=== PATIENT | male | born 1985 | race Caucasian/White ===

== ENCOUNTER 2022-01-07 21:35 | Emergency (ER) | payer OTHER, MEDICAID, SELFPAY ==
[2022-01-07 21:49] VITALS: BP 128/78; PULSE 83; RESP 19; TEMP 36.9; O2SAT 100; BMI 25.0
--- NOTE | 2022-01-07 22:04 | ED_ITS ---
HPI - Skin/Abscess/Foreign Bdy General Chief complaint: Skin/Abscess/Foreign Body Stated complaint: states pain from infection lt arm Time Seen by Provider: 01/07/22 22:02 Source: patient Mode of arrival: Ambulatory Limitations: no limitations History of Present Illness HPI narrative: Patient here for pain and swelling in the left proximal forearm distal to the olecranon. Started 2 weeks ago. Denies any IV drug use. Has history of MRSA. He states it started with a here follicle being irritated. No joint pain. No skin breakdown. Patient states sulfa antibiotic works the best. Related Data Previous Rx's Medication Instructions Recorded cephalexin 500 mg capsule 500 mg PO QID #28 caps 01/07/22 ibuprofen 800 mg tablet 800 mg PO Q8H PRN pain #20 tabs 01/07/22 sulfamethoxazole 800 1 tab PO BID #14 tabs 01/07/22 mg-trimethoprim 160 mg tablet (Bactrim DS) Allergies Allergy/AdvReac Type Severity Reaction Status Date / Time amoxicillin Allergy Hives Verified 01/07/22 22:16 Review of Systems Review of Systems Narrative: GENERAL: Denies chills, fatigue, malaise, fever, sweats. HEENT: Denies sinus pain, ear pain, sore throat RESPIRATORY: Denies dyspnea, cough CARDIOVASCULAR: Denies chest pain, palpitations GASTROINTESTINAL: Denies nausea, vomiting, abdominal pain : Denies dysuria, frequency, hematuria MUSCULOSKELETAL: denies muscle or bony pain SKIN: Denies rash, positive for erythema/induration NEUROLOGIC: Denies weakness, numbness ROS Unobtainable: All systems reviewed & are unremarkable except as noted in HPI and below Patient History Social History Smoking Status: Current every day smoker Smoking Status: Current every day smoker alcohol intake frequency: 0-2 drinks per day Substance Use Type: methamphetamine Exam Narrative Exam Narrative: GENERAL: in no distress, not toxic not dyspneic HEAD: Normocephalic. EXTREMITIES: No gross deformities. Examination left upper extremity. There is erythema induration and mild tenderness to the proximal forearm near the olecranon. It is distal to the olecranon. No palpable fluctuance. No red streaking. Able to extend and flex at the elbow. [employer] and pulse with light touch intact to fingers and thumb. Skin otherwise intact. NEURO: AOx4. SKIN: Warm and dry PSYCH: Not anxious, is cooperative Initial Vital Signs Initial Vital Signs: Vital Signs Temperature 98.4 F 01/07/22 21:49 Pulse Rate 83 01/07/22 21:49 Respiratory Rate 19 01/07/22 21:49 Blood Pressure 128/78 01/07/22 21:49 Pulse Oximetry 100 01/07/22 21:49 Oxygen Delivery Method 01/07/22 21:49 Course Course Course Narrative: No new issues during course of stay Orders Ordered: ED Orders 01/07/22 22:06 US extremity nonvasc upper lt Stat Discontinued Medications Cephalexin HCl (Cephalexin 250 Mg Capsule) 500 mg PO NOW ONE Stop: 01/07/22 22:08 Last Admin: 01/07/22 22:21 Dose: 500 mg Documented By: ROBERTO Ibuprofen (Ibuprofen 400 Mg Tablet) 800 mg PO NOW ONE Stop: 01/07/22 22:14 Last Admin: 01/07/22 22:22 Dose: 800 mg Documented By: ROBERTO Trimethoprim/Sulfamethoxazole (Trimeth/Sulfa 160/800 (Ds) Tablet) 1 tab PO NOW ONE Stop: 01/07/22 22:08 Last Admin: 01/07/22 22:17 Dose: 1 tab Documented By: ROBERTO Reevaluation(s) Reevaluation #1: Reviewed results with patient. Pain control time of discharge. Not toxic at discharge. Return precautions reviewed with patient Time: 00:28 Vital Signs Vital signs: Vital Signs - 8 hr 01/07/22 21:49 01/08/22 00:34 Temperature 98.4 F Pulse Rate 83 80 Respiratory Rate 19 18 Blood Pressure 128/78 124/71 Pulse Oximetry 100 100 Oxygen Delivery Method Room Air Room Air MDM - Skin/Abscess/Foreign Bdy Differential Diagnosis Differential diagnosis: Likely abscess of skin or subcutaneous tissue, cellulitis and other (Abscess/cellulitis) Imaging Data Ultrasound extremity: Radiologist's Impression: [address] [address] Ultrasound Report Signed Patient: Adalberto Sen MR#: [id number] : 1985 Acct:[id number] Age/Sex: 36 / M Date of Service: 01/07/22 Loc: ED Accession Number: [id number] ?? Procedure: US extremity nonvasc upper lt Ordering Provider: Luis F Alcantar MD PROCEDURE:? US EXTREMITY NONVASC UPPER LT ? INDICATIONS:? LEFT ARM PAIN; POSSIBLE ABSCESS ? TECHNIQUE:? Real-time scanning was performed of the left lower, with image documentation. ? ? COMPARISON:? None. ? FINDINGS:? ? Ultrasound evaluation of the left forearm in the area of clinical concern demonstrates no discrete fluid collection to suggest an abscess.? No suspicious mass lesions. ? IMPRESSION:? ? 1. No discrete loculated fluid collection to suggest an abscess demonstrated in the area of clinical concern. ? ? Dictated by: Adalberto Grewal M.D. on 01/08/2022 at 0:19 ? ? Approved by: Adalberto Grewal M.D. on 01/08/2022 at 0:21 ? MDM Narrative Medical decision making narrative: Appropriate for discharge home. Exam and imaging are reassuring. No blood work indicated this time. Nontoxic. No fever. No incision drainage at this time. No fluid collection. Return precautions reviewed with patient. Discharge Plan Departure Patient Disposition: Home Clinical Impression: Cellulitis Instructions: DI for Cellulitis -- Adult Activity Restrictions/Additional Instructions: See family doctor within a week for re-evaluation. Call provided primary care referral phone number to establish family doctor. Call [phone] return if worse if any questions or concerns. At this time no incision/drainage of the skin indicated. Please be sure to complete the antibiotics. Prescriptions: New ibuprofen 800 mg tablet 800 mg PO Q8H PRN (Reason: pain) Qty: 20 0RF cephalexin 500 mg capsule 500 mg PO QID Qty: 28 0RF sulfamethoxazole-trimethoprim [Bactrim DS] 800-160 mg tablet 1 tab PO BID Qty: 14 0RF Visit Report Forms: Patient Portal/API
--- NOTE | 2022-01-07 22:06 | DI.US.S_ITS ---
PROCEDURE: US EXTREMITY NONVASC UPPER LT INDICATIONS: LEFT ARM PAIN; POSSIBLE ABSCESS TECHNIQUE: Real-time scanning was performed of the left lower, with image documentation. COMPARISON: None. FINDINGS: Ultrasound evaluation of the left forearm in the area of clinical concern demonstrates no discrete fluid collection to suggest an abscess. No suspicious mass lesions. IMPRESSION: 1. No discrete loculated fluid collection to suggest an abscess demonstrated in the area of clinical concern. Dictated by: Adalberto Grewal M.D. on 01/08/2022 at 0:19 Approved by: Adalberto Grewal M.D. on 01/08/2022 at 0:21
[2022-01-07] MEDS: TRIMETH/SULFA 160/800 (DS) TABLET 1 TAB PO (22:17)
[2022-01-07] MEDS: cephALEXin 250 MG CAPSULE 500 MG PO (22:21)
[2022-01-07] MEDS: IBUPROFEN 400 MG TABLET 800 MG PO (22:22)
[2022-01-08 00:34] VITALS: BP 124/71; PULSE 80; RESP 18; O2SAT 100
== END 2022-01-08 00:36 | disposition home or self-care (01) ==
PROVIDERS: Emergency Provider Emergency Medicine
DX: L03.114 Cellulitis of left upper limb (principal)
CPT/HCPCS: 76882; 99283

== ENCOUNTER 2022-01-08 08:21 | Emergency (ER) | payer OTHER, MEDICAID, SELFPAY ==
[2022-01-08 08:44] VITALS: BP 125/64; PULSE 80; RESP 18; TEMP 36.9; O2SAT 99
--- NOTE | 2022-01-08 09:05 | ED_ITS ---
HPI - Skin/Abscess/Foreign Bdy General Chief complaint: Skin/Abscess/Foreign Body Stated complaint: States MRSA. Here last night Time Seen by Provider: 01/08/22 09:05 Source: patient Mode of arrival: Ambulatory Limitations: no limitations History of Present Illness HPI narrative: Patient is a 36-year-old male homeless presenting for the 2nd time in 10 hours for right arm cellulitis. He denies any on the DA. He says he has had swelling and redness for last 2 weeks. He was given prescriptions of both cephalexin ibuprofen and Bactrim. He is yet to have filled any of them. There isn't ultrasound done which did not show any fluid collection. He is requesting a sandwich Related Data Previous Rx's Medication Instructions Recorded cephalexin 500 mg capsule 500 mg PO QID #28 caps 01/07/22 ibuprofen 800 mg tablet 800 mg PO Q8H PRN pain #20 tabs 01/07/22 sulfamethoxazole 800 1 tab PO BID #14 tabs 01/07/22 mg-trimethoprim 160 mg tablet (Bactrim DS) Allergies Allergy/AdvReac Type Severity Reaction Status Date / Time amoxicillin Allergy Hives Verified 01/07/22 22:16 Review of Systems Review of Systems Narrative: GENERAL: Denies chills,fever HEENT: Denies throat pain RESPIRATORY: Denies dyspnea, cough, wheezing CARDIOVASCULAR: Denies chest pain, palpitations GASTROINTESTINAL: Denies nausea, vomiting MUSCULOSKELETAL: Denies extremity pain, injury SKIN: See HPI NEUROLOGIC: Denies weakness, dizziness, headache, numbness 8 point review of systems is negative except for those stated above and HPI Patient History Social History Smoking Status: Current every day smoker Smoking Status: Current every day smoker tobacco type: cigarettes alcohol intake frequency: 0-2 drinks per day Substance Use Type: marijuana, crack/cocaine, heroin and methamphetamine Exam Initial Vital Signs Initial Vital Signs: Vital Signs Temperature 98.4 F 01/08/22 08:44 Pulse Rate 80 01/08/22 08:44 Respiratory Rate 18 01/08/22 08:44 Blood Pressure 125/64 01/08/22 08:44 Pulse Oximetry 99 01/08/22 08:44 Oxygen Delivery Method 01/08/22 08:44 GENERAL: Well-appearing, well-nourished and in no acute distress. CARDIOVASCULAR: peripheral pulses in tact, cap refill <2 sec RESPIRATORY: No respiratory distress, speaks in full sentences without difficulty EXTREMITIES: Normal range of motion, no clubbing or edema. Neurovascularly intact NEUROLOGICAL: Cranial nerves II through XII grossly intact. Normal gait and sp eech. SKIN: Right arm erythema area of mild swelling no obvious fluctuation. No active drainage. Tender to touch Course Orders Ordered: Discontinued Medications Ibuprofen (Ibuprofen 400 Mg Tablet) 800 mg PO NOW ONE Stop: 01/08/22 09:17 Last Admin: 01/08/22 09:30 Dose: 800 mg Documented By: CTS Vital Signs Vital signs: Vital Signs - 8 hr 01/08/22 08:44 Temperature 98.4 F Pulse Rate 80 Respiratory Rate 18 Blood Pressure 125/64 Pulse Oximetry 99 Oxygen Delivery Method Room Air MDM - Skin/Abscess/Foreign Bdy MDM Narrative Medical decision making narrative: I have explained to patient that I cannot fill his prescriptions for him. He is given a good Rx card. He is encouraged to try and do warm compresses. It may need to be opened but certainly not now. More likely a cellulitis. He does not appear septic. Discharge Plan Departure Patient Disposition: Home Clinical Impression: Cellulitis Instructions: DI for Cellulitis -- Adult Activity Restrictions/Additional Instructions: *You have been diagnosed with cellulitis *What to do: You have infection on her skin. At this time it will not help to open it. Please continue to monitor it may need to be opened later *Continue to take medications as directed Take your antibiotic as prescribed you have been given a discount card *Follow up with your primary care provider in 2-3 days or call [phone] *Return to ER if you should have increasing redness fever pain or any new, worsening or concerning symptoms Prescriptions: No Action ibuprofen 800 mg tablet 800 mg PO Q8H PRN (Reason: pain) Qty: 20 0RF cephalexin 500 mg capsule 500 mg PO QID Qty: 28 0RF sulfamethoxazole-trimethoprim [Bactrim DS] 800-160 mg tablet 1 tab PO BID Qty: 14 0RF Visit Report Forms: Patient Portal/API
[2022-01-08] MEDS: IBUPROFEN 400 MG TABLET 800 MG PO (09:30)
--- NOTE | 2022-01-08 09:30 | PC.NURSE ---
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
== END 2022-01-08 09:42 | disposition home or self-care (01) ==
PROVIDERS: Emergency Provider Emergency Medicine
DX: L03.113 Cellulitis of right upper limb (principal)
CPT/HCPCS: 99283